=== PATIENT | male | born 1980 ===

== ENCOUNTER 2017-09-22 17:07 | Emergency (ER) | payer OTHER ==
[2017-09-22 17:22] VITALS: BP 123/79
--- NOTE | 2017-09-22 17:31 | ED ---
GI/ HPI - HPI Summary HPI Summary: 36-year-old male presents with possible hemorrhoids for the past 6 days. He states he had a hard bowel movement and saw some blood in the stool. He states he's been having intermittent blood with bowel movements. He states just been streaking. He states his anus feels itchy. He's been having continued constipation. He has been using preparation H and is doing sitz baths with minimal relief. he is complaining of having rectal pain. No abdominal pain. No nausea no vomiting. Has had hemorrhoids before. No medical conditions. No history of ulcerative colitis or Crohn's. - History of Current Complaint Pain Intensity: 4 <Omayra Arreaga - Last Filed: 09/22/17 17:43> <Gila Miller - Last Filed: 09/22/17 18:47> - History of Current Complaint Chief Complaint: [facility] Time Seen by Provider: 09/22/17 17:23 Stated Complaint: PRIVATE - Allergy/Home Medications Allergies/Adverse Reactions: Allergies Allergy/AdvReac Type Severity Reaction Status Date / Time No Known Allergies Allergy Verified 09/22/17 17:22 Home Medications: Home Medications Methylcellulose [Fiber Therapy] 500 mg PO ONCE 09/22/17 [History Confirmed 09/22] Multivit-Min/Iron Fum/Folic AC [Multi Vitamin and Mineral] 1 tab PO DAILY [History Confirmed 09/22/17] PMH/Surg Hx/FS Hx/Imm Hx Endocrine/Hematology History: Denies: Hx Diabetes Cardiovascular History: Denies: Hx Hypertension, Hx Pacemaker/ICD History: Denies: Hx Renal Disease Sensory History: Denies: Hx Hearing Aid Psychiatric History: Denies: Hx Panic Disorder - Surgical History Surgery Procedure, Year, and Place: LT MIDDLE FINGER - NERVE SURG. VASECTOMY Infectious Disease History: No Infectious Disease History: Denies: Traveled Outside the [place] in Last 30 Days - Family History Known Family History: Positive: Other - no GI disorders - Social History Alcohol Use: Occasionally Substance Use Type: Reports: Marijuana Substance Use Comment - Amount & Last Used: occ usage Smoking Status (MU): Never Smoked Tobacco <Omayra Arreaga - Last Filed: 09/22/17 17:43> Review of Systems Negative: Fever Negative: Chest Pain Negative: Shortness Of Breath Positive: Other - rectal pain. Negative: Vomiting, Nausea All Other Systems Reviewed And Are Negative: Yes <Omayra Arreaga - Last Filed: 09/22/17 17:43> Physical Exam Triage Information Reviewed: Yes Vital Signs On Initial Exam: Initial Vitals Temp Pulse Resp BP Pulse Ox 98.5 F 60 20 123/79 99 09/22/17 17:14 09/22/17 17:14 09/22/17 17:14 09/22/17 17:14 09/22/17 17:14 Vital Signs Reviewed: Yes Appearance: Positive: Well-Appearing Skin: Positive: Warm, Dry Head/Face: Positive: Normal Head/Face Inspection Eyes: Positive: Normal, Conjunctiva Clear ENT: Positive: Pharynx normal Respiratory/Lung Sounds: Positive: Clear to Auscultation, Breath Sounds Present Cardiovascular: Positive: Normal, RRR Abdomen Description: Positive: Nontender, Soft, Other: - normal rectal tone, external hemorrhoid seen at 5 position, no fissure Bowel Sounds: Positive: Present Musculoskeletal: Positive: Normal Neurological: Positive: Normal Psychiatric: Positive: Normal <Omayra Arreaga - Last Filed: 09/22/17 17:43> Vital Signs On Initial Exam: Initial Vitals Temp Pulse Resp BP Pulse Ox 98.5 F 60 20 123/79 99 09/22/17 17:14 09/22/17 17:14 09/22/17 17:14 09/22/17 17:14 09/22/17 17:14 <Gila Miller - Last Filed: 09/22/17 18:47> Diagnostics - Vital Signs Vital Signs Temp Pulse Resp BP Pulse Ox 09/22/17 17:14 98.5 F 60 20 123/79 99 <Omayra Arreaga - Last Filed: 09/22/17 17:43> - Vital Signs Vital Signs Temp Pulse Resp BP Pulse Ox 09/22/17 17:14 98.5 F 60 20 123/79 99 <Gila Miller - Last Filed: 09/22/17 18:47> GIGU Course/Dx - Course Course Of Treatment: 36-year-old male presents with possible hemorrhoids for the past 6 days. He states he had a hard bowel movement and saw some blood in the stool. He states he's been having intermittent blood with bowel movements. He states just been streaking. He states his anus feels itchy. He's been having continued constipation. He has been using preparation H and is doing sitz baths with minimal relief. he is complaining of having rectal pain. No abdominal pain. No nausea no vomiting. Has had hemorrhoids before. No medical conditions. No history of ulcerative colitis or Crohn's. On exam nontender abdomen. Has external hemorrhoid present at this 5 position. No bleeding noted. Normal rectal tone. No fissure seen. Will have continue Preparation H. Will add on Colace for stool softener. And dibucaine for pain and told that does not improve to follow-up with surgery. Patient understands agrees with plan. - Diagnoses Differential Diagnoses - Male: Hemorrhoids, Irritable Bowel Syndrome, Other - anal fissure <Omayra Arreaga - Last Filed: 09/22/17 17:43> <Gila Miller - Last Filed: 09/22/17 18:47> - Diagnoses Provider Diagnoses: Hemorrhoids Discharge - Sign-Out/Discharge Documenting (check all that apply): Discharge/Admit/Transfer - Billing Disposition and Condition Condition: GOOD Disposition: Home <Omayra Arreaga - Last Filed: 09/22/17 17:43> - Billing Disposition and Condition Condition: GOOD Disposition: Home <Gila Miller - Last Filed: 09/22/17 18:47> - Discharge Plan Condition: Good Disposition: HOME Prescriptions: Dibucaine 1% OINT* [Nupercainal 1% oint*] 1 applic TOPICAL QID #1 tube Docusate CAP* [Colace Cap*] 100 mg PO DAILY #14 cap Patient Education Materials: Hemorrhoids (ED) Referrals: No Primary Care Phys,NOPCP [Primary Care Provider] - [facility] [Outside] Jorge Moss MD [Medical Doctor] - Additional Instructions: Inc fiber, take doculase one a day for constipation Do sitz baths 2 times a day continue preparation 4 swipes Use dibucaine up to 4 times a day sparingly Follow up with surgery Return to ED if any new or worsening symptoms Attestation Statement User Type: Provider - I was available for consult. This patient was seen by the [facility]. The patient was not presented to, seen by, or examined by me. -Brody <Gila Miller - Last Filed: 09/22/17 18:47>
== END 2017-09-22 17:35 | disposition home or self-care (01) ==
LOC: UCEAST 17:07
DX: K64.8 Other hemorrhoids (principal); K59.00 Constipation, unspecified
CPT/HCPCS: 99202; G0463